=== PATIENT | male | born 1975 | race Asian ===

== ENCOUNTER 2021-07-14 13:56 | Emergency (ER) | payer OTHER, MEDICAID ==
[2021-07-14] MEDS ORDERED: Zemuron 100 MG/10 ML IV STA (14:00)
[2021-07-14] MEDS ORDERED: VERSED 5 MG/5 ML IV STA (14:00)
[2021-07-14] MEDS ORDERED: SUBLIMAZE 100 MCG/2 ML IV STA (14:00)
--- NOTE | 2021-07-14 14:28 | XRAY ---
Indication: Tube placement. Comparison: None Portable chest demonstrates endotracheal tube tip 6 cm above heydi and NG tube tip in stomach. Remaining heart and lungs normal. Bony thorax intact.
[2021-07-14] MEDS ORDERED: Versed 50 MG/ 10 Ml MDV*** 50 MG in Sodium Chloride 0.9% 250 ML 240 ML IV PRN (14:31)
[2021-07-14] MEDS ORDERED: Zemuron 100 MG/10 ML 100 MG in Sodium Chloride 0.9% 100 ML BAG 90 ML IV PRN (14:34)
[2021-07-14] MEDS ORDERED: SUBLIMAZE 100 MCG/2 ML ONE ×2 (14:40→15:38)
[2021-07-14] MEDS ORDERED: Sodium Chloride 0.9% 1000 ML 1,000 ML ONE ×2 (14:41→16:04)
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
[2021-07-14 14:50] LABS: A-aADO2 258; ABG HEMOGLOBIN 14.1; ARTERIAL BLD GAS O2 SATURATION 97.6 % (95-100); ARTERIAL BLD GAS TIDAL VOLUME 600 cc; ARTERIAL BLOOD GAS BASE EXCESS -0.1 (-2.0-2.0); ARTERIAL BLOOD GAS FIO2 100 %; ARTERIAL BLOOD GAS PCO2 36 mmHg (35-45); ARTERIAL BLOOD GAS PO2 410 mmHg (75-100); ARTERIAL BLOOD GAS VENT MODE A/C; ARTERIAL BLOOD GAS pH 7.43 (7.35-7.45); HCO3- 23.9 (22-28); HGB O2 SAT 88.7 g/dF (94-100); Lactic Acid 1.7 (0.4-2.0); Methhemoglobin 0.3 % (1.4-1.5)
[2021-07-14 14:51] LABS: ABG POTASSIUM 2.7 (3.5-5.1); CARBOXYHEMOGLOBIN 8.8 % THgb (0.0-6.9)
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
[2021-07-14 14:53] LABS: ABG SITE LEFT RADIAL
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
[2021-07-14 15:36] LABS: Absolute Neutrophil Ct (ANC) 12.54 (1.4-6.9); Basophil (Absolute #) 0.01 (0-0.4); Eosinophil % 0.1 % (0.00-5.0); Eosinophil (Absolute #) 0.02 (0-0.5); Hematocrit 42.4 % (42-50); Hemoglobin 14.3 gm/dl (12.5-18.0); Lymphocyte (Absolute #) 1.98 (1.0-4.6); Lymphocytes % 12.4 % (24.0-44.0); Mean Cell Volume 91.4 fl (78-100); Mean Corpuscular Hemoglobin 30.8 pg (26-32); Mean Corpuscular Hgb Concent. 33.7 g/dl (32-36); Mean Platelet Volume 10.2 fl (7.5-11.0); Monocyte (Absolute #) 1.44 (0.0-1.3); Neutrophil % 78.4 % (36.0-66.0); Platelet Count 192 K/mm3 (150-450); Red Blood Count 4.64 M/mm3 (4.1-5.6); Red Cell Distribution Width 13.3 % (11.5-14.0)
[2021-07-14 15:38] LABS: INR 1.1 (0.8-3.0)
[2021-07-14 15:43] LABS: ALBUMIN 3.6 g/dL (3.5-5.0); ALKALINE PHOSPHATASE 67 U/L (38-126); ANION GAP 12.9 MEQ/L (5-15); BLOOD UREA NITROGEN 12 mg/dL (9-20); CHLORIDE 104 mmol/L (98-107); Calcium 7.1 mg/dL (8.4-10.2); Carbon Dioxide 22 mmol/L (22-30); Creatinine 1 0.39 mg/dL (0.66-1.25); EST GLOMERULAR FILTRATION RATE > 60.0 ML/MIN; Glucose 113 mg/dL (74-106); SGOT/AST 29 U/L (17-59); SGPT/ALT 18 U/L (0-50); SODIUM 136 mmol/L (137-145); Total Protein 6.3 g/dL (6.3-8.2)
[2021-07-14] MEDS ORDERED: SUBLIMAZE 100 MCG/2 ML IV ONE (15:49)
[2021-07-14 16:00] LABS: Potassium 2.7 mmol/L (3.5-5.1)
[2021-07-14] MEDS ORDERED: POTASSIUM CHLORIDE 20 mEq IN WATER 100ML 20 MEQ/100 ML BAG IV ONE (16:00)
[2021-07-14] MEDS ORDERED: POTASSIUM CHLORIDE 20 mEq IN WATER 100ML 100 ML IV ONE (16:01)
[2021-07-14 16:06] VITALS: BP 119/80; PULSE 80; O2SAT 99
== END 2021-07-14 16:36 | disposition short-term general hospital (02) ==
LOC: ED 13:56
DX: S11.91XA Laceration without foreign body of unspecified part of neck, initial encounter (principal); S01.01XA Laceration without foreign body of scalp, initial encounter; Z99.11 Dependence on respirator [ventilator] status
CPT/HCPCS: 31500; 36415; 36600; 70450; 71045; 72125; 80053; 82375; 82803; 82947; 83605; 85025; 85610; 94002; 94770; 96374; 96375; 96376; 99285; 99291; J2250; J3010; J3480